=== PATIENT | male | born 1990 | race Caucasian/White ===

== ENCOUNTER 2018-06-23 09:35 | Emergency (ER) | payer BC ==
[~2018-06-23] VITALS: Ht 193 cm; Wt 94.3 kg
--- NOTE | 2018-06-23 09:38 | NUR ---
patient seen and examine by
[2018-06-23] MEDS ORDERED: IBUPROFEN 800 MG TABLET PO ONE (09:45)
[2018-06-23] MEDS ORDERED: LITHIUM (09:46)
[2018-06-23] MEDS ORDERED: ALEVE (09:46)
[2018-06-23] MEDS ORDERED: MULTIVITAMINS (09:46)
[2018-06-23] MEDS ORDERED: IBUPROFEN 800 MG TABLET ONE (09:49)
--- NOTE | 2018-06-23 10:20 | NUR ---
Dcd instructions given to pt. who verbalized understanding. Left room ambulatory no c/of pain.
== END 2018-06-23 10:32 | disposition home or self-care (01) ==
LOC: ER 09:35
DX: S50.11XA Contusion of right forearm, initial encounter (principal); S70.11XA Contusion of right thigh, initial encounter; S80.211A Abrasion, right knee, initial encounter; S50.811A Abrasion of right forearm, initial encounter; S70.311A Abrasion, right thigh, initial encounter; V18.4XXA Pedal cycle driver injured in noncollision transport accident in traffic accident, initial encounter; Y93.I9 Activity, other involving external motion; Y92.89 Other specified places as the place of occurrence of the external cause; Y99.8 Other external cause status
CPT/HCPCS: 73090; 73551; A4663